=== PATIENT | female | born 1995 | race Caucasian/White ===

== ENCOUNTER 2016-06-14 07:19 | Inpatient (IN) | payer OTHER ==
[2016-06-14 08:08] VITALS: BMI 27.9
[2016-06-14] MEDS ORDERED: OXYTOCIN 10 UNIT/ML 1 ML VIAL IM PRN (08:26)
[2016-06-14] MEDS ORDERED: LIDOCAINE 1% 20 ML VIAL (10MG/ML) FOR IV START INTRADERMA PRN (08:26)
[2016-06-14] MEDS ORDERED: TERBUTALINE 1 MG/ML VIAL SQ PRN (08:26)
[2016-06-14] MEDS ORDERED: LIDOCAINE 1% (PF) 10 MG/ML (30 ML SDV) SQ PRN (08:26)
[2016-06-14] MEDS ORDERED: CARBOPROST TROMETHAMINE 250 MCG/ML 1 ML AMP IM PRN (08:26)
[2016-06-14] MEDS ORDERED: METHYLERGONOVINE 0.2 MG/ML 1 ML AMP IM PRN (08:26)
--- NOTE | 2016-06-14 08:26 | P.HPOB ---
History of Present Illness H&P Date: 06/14/16 Chief Complaint: Contractions This is a 21-year-old female 2 para 1 with an estimated date of confinement of 06/22/2016, estimated gestational age of 38-6/7 weeks, who presents to labor and delivery complaining of contractions since earlier this morning. They have become stronger and more regular. course has been with myself and then uncomplicated. She denies any rupture of membranes. labs: Random glucose-80 Hepatitis B surface antigen-negative Hemoglobin-13.2 Syphilis antibody-negative nonreactive Rubella-immune Blood type-A+ And a body screen-negative Obstetrical ultrasound-within normal limits one hour Glucola-135 Three-hour Glucola-within normal limits Group B streptococcus-negative Obstetrical history: . History of 1 vaginal delivery at term with no complications. Gynecologic history: No history of sexual transmitted diseases. Review of Systems Gastrointestinal: Reports abdominal pain Genitourinary: Reports pelvic pain, Reports Past Medical History Past Medical History: No Reported History History of Any Multi-Drug Resistant Organisms: None Reported, Other MDRO Past Surgical History: No Surgical Hx Reported Past Anesthesia/Blood Transfusion Reactions: No Reported Reaction Past Psychological History: Anxiety Smoking Status: Current every day smoker Past Alcohol Use History: None Reported Past Drug Use History: None Reported - Past Family History Mother Family Medical History: Thyroid Disorder Medications and Allergies Home Medications Medication Instructions Recorded Confirmed Type No Known Home Medications [No 06/14/16 06/14/16 History Known Home Medications] Allergies Allergy/AdvReac Type Severity Reaction Status Date / Time No Known Allergies Allergy Verified 01/07/16 23:45 Exam Osteopathic Statement: *. No significant issues noted on an osteopathic structural exam other than those noted in the History and Physical/Consult. - Vital Signs Vital signs: Vital Signs Temp Pulse Resp BP Pulse Ox 06/14/16 07:23 96.3 F L 83 17 126/84 99 Intake and Output 06/13/16 06/14/16 06/14/16 22:59 06:59 14:59 Other: Weight 67.132 kg Patient Weight 06/15/16 06:59 Weight 67.132 kg HEENT: Within normal limits Heart: Regular rate and rhythm Lungs: Clear to auscultation bilaterally Abdomen: Cervix: Initially in triage was 5 cm/90%/-2 station. Currently cervix is 7-1/2 cm/90%/-1 station. Artificial rupture members is carried out with clear fluid noted. heart tones: Reactive Contractions: Every 2 minutes Extremities: Negative Homans Assessment and Plan (1) 38 weeks gestation of Status: Acute (2) Spontaneous onset of labor Status: Acute Plan: Admit for active labor. Expectant management.
[2016-06-14] MEDS: LACTATED RINGERS 1,000 ML IV SCH ×2 (08:31→11:13)
[2016-06-14 08:47] LABS: Basophils % (A) 0 %; CH 30.4; Eosinophils # (A) 0.1 k/uL (0-0.7); Eosinophils % (A) 0 %; HDW 3.24; HGB 12.4 gm/dL (11.4-16.0); Luc # (Auto) 0.35; Luc % (Auto) 2; Lymphocytes # (A) 1.6 k/uL (1.0-4.8); Lymphocytes % (A) 10 %; MCH 29.4 pg (25.0-35.0); MCHC 32.8 g/dL (31.0-37.0); MCV 89.8 fL (80.0-100.0); Mean Platelet Volume 7.5; Monocytes # (A) 0.7 k/uL (0-1.0); Monocytes % (A) 4 %; Neutrophils # (A) 13.1 k/uL (1.3-7.7); Neutrophils % (A) 83 %; RBC 4.23 m/uL (3.80-5.40); RDW 13.6 % (11.5-15.5); WBC 15.8 k/uL (3.8-10.6); WBC (Perox) 17.36
[2016-06-14] MEDS ORDERED: BUTORPHANOL 1 MG/ML 1 ML VIAL IV PRN (09:53)
[2016-06-14] MEDS ORDERED: OXYTOCIN 30 UNITS/500 ML NS 30 UNIT in SALINE 1 500ML.BAG IV SCH ×2 (10:00→12:00)
--- NOTE | 2016-06-14 11:56 | P.PROBDLV ---
Vaginal Delivery Note - . Vaginal Delivery Note: The patient progressed to complete dilation after oxytocin augmentation of labor and artificial rupture membranes with clear fluid noted. She did receive 1 dose of Stadol while in labor. Once reaching complete, she began pushing. Infant's head came to a crown and then delivered across the perineum followed by the anterior shoulder. Nose and mouth were bulb suctioned. With one further push, the remainder the easily delivered and was placed on mother 's abdomen. Cord was clamped and cut and was taken to warmer for evaluation. A viable male infant was noted with scores of 8 at 1 minute and 9 at 5 minutes and weight of 7 lbs. 10 oz. No perineal lacerations are noted. Placenta did take approximately 15 minutes to detach and then easily delivered intact. Three-vessel cord is noted. Uterus contracted well after oxytocin was given and uterine massage was carried out. Estimated blood loss is approximately 100 mL's. Both mother and are in stable condition.
[2016-06-14] MEDS ORDERED: diphenhydrAMINE 25 MG CAP PO PRN (11:58)
[2016-06-14] MEDS ORDERED: WITCH HAZEL 1 EACH MED..PAD TOPICAL PRN (11:58)
[2016-06-14] MEDS ORDERED: diphenhydrAMINE 50 MG/ML 1 ML VIAL IVP PRN ×2 (11:58)
[2016-06-14] MEDS ORDERED: BENZOCAINE/MENTHOL SPRAY 1 GM/SPRAY AEROSOL TOPICAL PRN (11:58)
[2016-06-14] MEDS ORDERED: HYDROCORTISONE 2.5% RECTAL CREAM 30 GM TUBE RECTAL PRN (11:58)
[2016-06-14] MEDS ORDERED: LANOLIN CREAM 5 GM TUBE TOPICAL PRN (11:58)
[2016-06-14] MEDS ORDERED: ACETAMINOPHEN TAB 325 MG TAB PO PRN (11:58)
[2016-06-14] MEDS ORDERED: diphenhydrAMINE 50 MG CAP PO PRN (11:58)
[2016-06-14] MEDS ORDERED: Acetaminophen-Codeine 300-30mg TAB PO PRN ×2 (11:58)
[2016-06-14] MEDS ORDERED: ZOLPIDEM 5 MG TAB PO PRN (11:58)
[2016-06-14] MEDS ORDERED: IBUPROFEN 600 MG TAB PO PRN (11:58)
[2016-06-14] MEDS ORDERED: SIMETHICONE 80 MG CHEWABLE PO PRN (11:58)
[2016-06-14] MEDS: SENNOSIDES-DOCUSATE SODIUM 1 EACH TAB PO SCH (20:28)
[2016-06-15 07:49] VITALS: BP 108/77; PULSE 67; RESP 17; TEMP 98
[2016-06-15] MEDS: SENNOSIDES-DOCUSATE SODIUM 1 EACH TAB PO SCH (07:49)
[2016-06-15 09:10] LABS: Basophils % (A) 0 %; CH 30.2; CHCM 33.6; Eosinophils # (A) 0.1 k/uL (0-0.7); Eosinophils % (A) 1 %; HCT 34.3 % (34.0-46.0); HDW 3.25; HGB 11.1 gm/dL (11.4-16.0); Luc # (Auto) 0.48; Luc % (Auto) 3; Lymphocytes # (A) 3.1 k/uL (1.0-4.8); Lymphocytes % (A) 22 %; MCH 29.4 pg (25.0-35.0); MCHC 32.5 g/dL (31.0-37.0); MCV 90.4 fL (80.0-100.0); Mean Platelet Volume 7.3; Monocytes # (A) 0.6 k/uL (0-1.0); Monocytes % (A) 4 %; Neutrophils # (A) 10.1 k/uL (1.3-7.7); Neutrophils % (A) 70 %; RDW 13.7 % (11.5-15.5); WBC 14.4 k/uL (3.8-10.6); WBC (Perox) 14.56
--- NOTE | 2016-06-15 11:09 | P.DS ---
Providers Date of admission: 06/14/16 08:17 Expected date of discharge: 06/15/16 Attending physician: Damaris Quinones Primary care physician: Stated None - Discharge Diagnosis(es) (1) 38 weeks gestation of Current Visit: Yes Status: Acute (2) Spontaneous onset of labor Current Visit: No Status: Acute Hospital Course: This is a 21-year-old female 2 para 1 at 38-6/7 weeks who presented in active labor. She delivered vaginally a viable male infant with scores of 8 at 1 minute and 9 at 5 minutes and weight of 7 lbs. 10 oz. Her course is uncomplicated. She is breast and bottlefeeding. Lochia is decreasing. Pain is well-controlled with oral pain medications. Vital signs are stable. Abdomen is soft and nontender. Fundus is firm and nontender. Extremities show negative Homans. Impression is status post vaginal delivery day #1. Plan is to discharge home today. Routine instructions are given. She states she are he has ibuprofen at home. She will be given a prescription for Tylenol 3 and a breast pump. She is advised to follow up in the office in 6 weeks for a check. She is advised to call the office if she has any further questions or concerns prior to her appointment time. Procedures: Spontaneous vaginal delivery of a viable male infant on 06/14/2016 Patient Condition at Discharge: Stable Plan - Discharge Summary New Discharge Prescriptions: Acetaminophen-Codeine 300-30mg [Tylenol w/codeine #3] 1 each PO Q4HR PRN #30 tab PRN Reason: Mild Pain exceeding Tylenol Discharge Medication List Acetaminophen-Codeine 300-30mg [Tylenol w/codeine #3] 1 each PO Q4HR PRN #30 tab 06/15/16 [Rx] Ibuprofen [Motrin] 600 mg PO Q6HR PRN #0 tab 06/15/16 [Rx] Follow up Appointment(s)/Referral(s): Damaris Quinones DO [Doctor of Osteopathic Medicine] - 6 Weeks Activity/Diet/Wound Care/Special Instructions: Instructions 1. Do not begin any exercise program for 3 weeks. 2. Do not resume sexual relations for 3 weeks or longer if uncomfortable. 3. You may take tub baths or showers at any time. 4. You may use tampons if desired after 3 weeks. 5. Keep the area of episiotomy (stitches) clean and dry. 6. If you are not nursing, wear a good fitting, supportive bra during the day and limit fluid intake for at least 1 week to prevent breast engorgement. 7. Call the office, [phone], within the next week to make appointment for your 6 week checkup if it has not already been made. 8. Report any of the following occurrences to the doctor promptly: a. Heavy, excessive bleeding b. Chills, fever c. Burning or frequency of urination d. Pain or redness and breasts if nursing e. Increasing pain or swelling in episiotomy (stitches). In addition to the above instructions, the following additional should be followed: 1. No heavy lifting or straining (exercising) until after 6 week checkup. 2. Keep abdominal incision clean and dry: You may wear a dressing if more comfortable. 3. Make office appointment for 10 days after going home or as instructed by her doctor. Discharge Disposition: HOME SELF-CARE
== END 2016-06-15 12:53 | disposition home or self-care (01) | DRG 775 ==
LOC: FBPOP 07:19 → 4FBP 08:17
PROVIDERS: ADMIT Obstetrics & Gynecology; ATTEND Obstetrics & Gynecology
PROC: 10E0XZZ Delivery of Products of Conception, External Approach (ICD-10-PCS; principal; 2016-06-14)
PROC: 10907ZC Drainage of Amniotic Fluid, Therapeutic from Products of Conception, Via Natural or Artificial Opening (ICD-10-PCS; 2016-06-14)
DX: O99.334 Smoking (tobacco) complicating childbirth (principal); O99.344 Other mental disorders complicating childbirth; F41.9 Anxiety disorder, unspecified; Z37.0 Single live birth; F17.200 Nicotine dependence, unspecified, uncomplicated; Z3A.38 38 weeks gestation of pregnancy
CPT/HCPCS: 59025; 85025; 88307; 99213

== ENCOUNTER → 2020-07-23 | Outpatient (CLI) | payer OTHER ==
--- NOTE | 2020-07-23 17:30 | US ---
EXAMINATION TYPE: Ultrasound OB <= 14 week fetus DATE OF EXAM: 07/23/2020 2:33 PM COMPARISON: NONE CLINICAL HISTORY: 25-year-old female Z36 CONFIRM DATES. No complaints, EXAM PERFORMED: OBTA FINDINGS: EXAM MEASUREMENTS: GESTATIONAL AGE / DATING Physician Established: Not yet established Dates by LMP: (9 weeks/6 days) EDC: 02/19/2021 Dates by First Scan: No previous this is first scan Dates by Current Scan for: (9 weeks/0 days) EDC: 02/25/2021 MATERNAL ANATOMY Uterus: 13.7 x 5.9 x 5.3cm Right Ovary: 2.5 x 1.9 x 1.2cm Left Ovary: 2.2 x 1.6 x 1.5cm Post CDS / Adnexa: wnl Presence of free fluid: no Presence of corpus luteal cyst: yes, left ovary 1.5 x 1.3 x 1.4cm Presence of subchorionic bleed: no GESTATION / SURVEY CRL: 2.3cm ( 9 weeks/0 days) MSD: wnl Yolk Sac (normal less than 6mm): 0.3cm Heart Rate: 160 bpm Rhythm: Normal IUP: Viable IUP Date of LMP: 05/15/2020 IMPRESSION: 1. Single live intrauterine with estimated gestational age of 9 weeks 6 days by LMP. Curren t ultrasound biometry by CRL is smaller at 9 weeks 0 days. Clinically correlate. 2. Complete survey recommended at 18-20 weeks.
== END ==
LOC: RADUSWWP 14:18
PROVIDERS: ATTEND Obstetrics & Gynecology
DX: Z36.87 Encounter for antenatal screening for uncertain dates (principal); Z3A.09 9 weeks gestation of pregnancy
CPT/HCPCS: 76801

== ENCOUNTER 2021-02-07 06:00 | Inpatient (IN) | payer OTHER ==
--- NOTE | 2021-02-06 13:23 | P.HPOB ---
History of Present Illness H&P Date: 02/06/21 Chief Complaint: Induction of labor, IUGR This is a 26 y.o. female, 3, para 2, with an estimated date of confinement of 02/19/2021, estimated gestational age of 38-2/7 weeks, who presents for induction of labor due to IUGR. Her last US at [facility] showed an estimated weight of 5#5oz at 8th percentile. [facility] has recommended delivery between 38-39 weeks for this reason. Her WENDY was 11.2 cm and biophysical profile and dopplers have been normal. course has otherwise been uncomplicated. labs: Hepatitis B surface antigen-neg RPR- reactive, Treponema antibodies-NR Rubella-immune Blood type-A+ Antibody screen-neg HIV-NR Hemoglobin-13.8 Random glucose-86 1 hr. GTT-127 GBS-positive OB Hx: . HIstory of 2 vaginal deliveries at term. 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 Social Hx: Single, works at [email or web address] Review of Systems Constitutional: Denies chills, Denies fever Eyes: denies blurred vision, denies pain Ears, nose, mouth and throat: Denies headache, Denies sore throat Cardiovascular: Denies chest pain, Denies shortness of breath Gastrointestinal: Reports abdominal pain (irregular ctxs) Genitourinary: Reports pelvic pain, Denies dysuria, Denies hematuria Musculoskeletal: Reports low back pain Integumentary: Denies pruritus, Denies rash Neurological: Denies numbness, Denies weakness Psychiatric: Denies anxiety, Denies depression Past Medical History Past Medical History: No Reported History History of Any Multi-Drug Resistant Organisms: None Reported, Other MDRO Past Surgical History: No Surgical Hx Reported Past Anesthesia/Blood Transfusion Reactions: No Reported Reaction Past Psychological History: Anxiety Smoking Status: Light tobacco smoker Past Alcohol Use History: None Reported Past Drug Use History: None Reported - Past Family History Mother Family Medical History: Hypertension, Thyroid Disorder Medications and Allergies Home Medications Medication Instructions Recorded Confirmed Type Pnv,Calcium 72/Iron/Folic Acid 1 each PO 02/06/21 History [ Plus Tablet] Allergies Allergy/AdvReac Type Severity Reaction Status Date / Time No Known Allergies Allergy Verified 01/07/16 23:45 Exam Osteopathic Statement: *. No significant issues noted on an osteopathic structural exam other than those noted in the History and Physical/Consult. HEENT: within normal limits Heart: regular rate and rhythm Lungs: clear to auscultation bilaterally Abdomen: , non-tender heart tones: 140's by doppler Cervix: 1 cm/60%/-3 Extremities: neg. Judith's Assessment and Plan (1) IUGR (intrauterine growth restriction) Status: Acute Code(s): [id number] - SNOMED Code(s): 70695823 (2) 38 weeks gestation of Status: Acute Code(s): Z3A.38 - 38 WEEKS GESTATION OF SNOMED Code(s): 73099767 Plan: Oxytocin induction of labor. Expectant management. Antibiotic prophylaxis for GBS. Epidural anesthesia if desired.
[2021-02-07] MEDS ORDERED: OXYTOCIN 10 UNIT/ML 1 ML VIAL IM PRN (06:08)
[2021-02-07] MEDS ORDERED: METHYLERGONOVINE 0.2 MG/ML 1 ML AMP IM PRN (06:08)
[2021-02-07] MEDS ORDERED: LIDOCAINE 0.5% (PF) 5 MG/ML (50 ML SDV) SQ PRN (06:08)
[2021-02-07] MEDS ORDERED: LIDOCAINE 1% (10MG/ML) FOR IV START INTRADERMA PRN (06:08)
[2021-02-07] MEDS ORDERED: CARBOPROST TROMETHAMINE 250 MCG/ML 1 ML AMP IM PRN (06:08)
[2021-02-07] MEDS ORDERED: TERBUTALINE 1 MG/ML VIAL SQ PRN (06:08)
[2021-02-07] MEDS ORDERED: OXYTOCIN 30 UNITS/500 ML NS 30 UNIT in SALINE 1 500ML.BAG IV SCH ×2 (06:08→19:06)
[2021-02-07] MEDS: LACTATED RINGERS 1,000 ML IV SCH ×2 (06:11→14:49)
[2021-02-07] MEDS ORDERED: AMPICILLIN 2,000 MG in SODIUM CHLORIDE 0.9% 100 ML IVPB ONE (06:15)
[2021-02-07 06:32] LABS: Basophils % (A) 0 %; Eosinophils # (A) 0.1 k/uL (0-0.7); Eosinophils % (A) 1 %; HCT 34.8 % (34.0-46.0); HGB 12.3 gm/dL (11.4-16.0); Lymphocytes # (A) 2.1 k/uL (1.0-4.8); Lymphocytes % (A) 18 %; MCH 32.7 pg (25.0-35.0); MCHC 35.4 g/dL (31.0-37.0); MCV 92.4 fL (80.0-100.0); Mean Platelet Volume 7.9; Monocytes # (A) 0.5 k/uL (0-1.0); Monocytes % (A) 4 %; Neutrophils # (A) 8.8 k/uL (1.3-7.7); Neutrophils % (A) 74 %; Platelet Count 287 k/uL (150-450); RBC 3.76 m/uL (3.80-5.40); RDW 13.5 % (11.5-15.5); WBC 11.9 k/uL (3.8-10.6)
[2021-02-07] MEDS: AMPICILLIN 1,000 MG in SODIUM CHLORIDE 0.9% 50 ML IVPB SCH ×3 (10:49→18:28)
[2021-02-07] MEDS ORDERED: ONDANSETRON 4 MG/2 ML VIAL IVP STA (14:14)
[2021-02-07] MEDS ORDERED: BUTORPHANOL 1 MG/ML 1 ML VIAL IV ONE (15:55)
[2021-02-07] MEDS ORDERED: BUTORPHANOL 1 MG/ML 1 ML VIAL IV STA (18:10)
--- NOTE | 2021-02-07 19:01 | P.PROBDLV ---
Vaginal Delivery Note - . Vaginal Delivery Note: Patient progressed to complete dilation after oxytocin induction of labor and artificial rupture of membranes with clear fluid noted. She did receive 2 doses of Stadol while in labor. She also received ampicillin for group B streptococcus prophylaxis. Once reaching 8-1/2-9 cm, she had a strong urge to push. She gave one push and immediately became complete and then in the same push delivered the infant's head. With one further push, the remainder of the easily delivered onto the bed in a controlled delivery. There was a cord around 1 shoulder and around the body but not around the neck. Nose and mouth were bulb suctioned. was taken to warmer for evaluation. A viable male infant was noted with scores of 8 at 1 minute and 9 at 5 minutes and weight of 5 pounds 15.6 ounces. Placenta delivered shortly thereafter, intact, with a three-vessel cord. Uterus contracted well after oxytocin was given and uterine massage was carried out. Inspection of the perineum revealed no perineal lacerations. Estimated blood loss is approximately 150 mL's. Both mother and are in stable condition.
[2021-02-07] MEDS ORDERED: diphenhydrAMINE 50 MG/ML 1 ML VIAL IVP PRN ×2 (19:06)
[2021-02-07] MEDS ORDERED: IBUPROFEN 600 MG TAB PO PRN (19:06)
[2021-02-07] MEDS ORDERED: diphenhydrAMINE 25 MG CAP PO PRN (19:06)
[2021-02-07] MEDS ORDERED: ZOLPIDEM 5 MG TAB PO PRN (19:06)
[2021-02-07] MEDS ORDERED: ACETAMINOPHEN TAB 325 MG TAB PO PRN (19:06)
[2021-02-07] MEDS ORDERED: LANOLIN CREAM 5 GM TUBE TOPICAL PRN (19:06)
[2021-02-07] MEDS ORDERED: SIMETHICONE 80 MG CHEWABLE PO PRN (19:06)
[2021-02-07] MEDS ORDERED: diphenhydrAMINE 50 MG CAP PO PRN (19:06)
[2021-02-07] MEDS ORDERED: BENZOCAINE/MENTHOL SPRAY 1 GM/SPRAY AEROSOL TOPICAL PRN (19:06)
[2021-02-07] MEDS ORDERED: HYDROCORTISONE 2.5% RECTAL CREAM 30 GM TUBE RECTAL PRN (19:06)
[2021-02-07] MEDS ORDERED: SENNOSIDES-DOCUSATE SODIUM 1 EACH TAB PO SCH (20:00)
[2021-02-08 07:02] LABS: Basophils % (A) 0 %; Eosinophils % (A) 0 %; HCT 30.2 % (34.0-46.0); HGB 10.9 gm/dL (11.4-16.0); Lymphocytes # (A) 1.9 k/uL (1.0-4.8); Lymphocytes % (A) 13 %; MCH 33.3 pg (25.0-35.0); MCV 92.5 fL (80.0-100.0); Mean Platelet Volume 8.3; Monocytes # (A) 0.6 k/uL (0-1.0); Monocytes % (A) 4 %; Neutrophils # (A) 11.7 k/uL (1.3-7.7); Neutrophils % (A) 80 %; Platelet Count 254 k/uL (150-450); RBC 3.26 m/uL (3.80-5.40); RDW 13.5 % (11.5-15.5); WBC 14.6 k/uL (3.8-10.6)
--- NOTE | 2021-02-08 08:56 | P.DS ---
Providers Date of admission: 02/07/21 06:00 Expected date of discharge: 02/08/21 Attending physician: Damaris Quinones Primary care physician: Stated None - Discharge Diagnosis(es) (1) IUGR (intrauterine growth restriction) Current Visit: No Status: Acute (2) 38 weeks gestation of Current Visit: No Status: Acute Hospital Course: This is a 26-year-old female 3 para 2 at 38-2/7 weeks who presented for induction of labor secondary to intrauterine growth restriction. She underwent oxytocin induction of labor and delivered vaginally a viable male infant with scores of 8 at 1 minute and 9 at 5 minutes and weight of 5 pounds 15.6 ounces. Her course has been uncomplicated. She is bottle feeding. Lochia is decreasing. Pain is well-controlled. Vital signs are stable. Abdomen is soft with fundus firm and nontender. Extremities show negative Homans. Impression is status post vaginal delivery day #1. Plan is to discharge home later today. Routine instructions are given. She will be given a prescription for ibuprofen. She is advised to call the office if she has any further questions or concerns prior to her appointment time. Procedures: Oxytocin induction of labor Spontaneous vaginal delivery of a viable male on 02/07/2021 Patient Condition at Discharge: Stable Plan - Discharge Summary Follow up Appointment(s)/Referral(s): Damaris Quinones DO [Doctor of Osteopathic Medicine] - 03/20/21 2:00 pm Activity/Diet/Wound Care/Special Instructions: Instructions 1. Do not begin any exercise program for 3 weeks. 2. Do not resume sexual relations for 3 weeks or longer if uncomfortable. 3. You may take tub baths or showers at any time. 4. You may use tampons if desired after 3 weeks. 5. Keep the area of episiotomy (stitches) clean and dry. 6. If you are not nursing, wear a good fitting, supportive bra during the day and limit fluid intake for at least 1 week to prevent breast engorgement. 7. Call the office, [phone], within the next week to make appointment for your 6 week checkup if it has not already been made. 8. Report any of the following occurrences to the doctor promptly: a. Heavy, excessive bleeding b. Chills, fever c. Burning or frequency of urination d. Pain or redness and breasts if nursing e. Increasing pain or swelling in episiotomy (stitches). In addition to the above instructions, the following additional should be followed: 1. No heavy lifting or straining (exercising) until after 6 week checkup. 2. Keep abdominal incision clean and dry: You may wear a dressing if more comfortable. 3. Make office appointment for 10 days after going home or as instructed by her doctor. Discharge Disposition: HOME SELF-CARE
[2021-02-08 12:47] VITALS: RESP 16
[2021-02-08 16:37] VITALS: BP 125/82; PULSE 90; TEMP 98.1
== END 2021-02-08 21:25 | disposition home or self-care (01) | DRG 807 ==
LOC: 4FBP 06:00
PROVIDERS: ADMIT Obstetrics & Gynecology; ATTEND Obstetrics & Gynecology
PROC: 10E0XZZ Delivery of Products of Conception, External Approach (ICD-10-PCS; principal; 2021-02-07)
PROC: 10907ZC Drainage of Amniotic Fluid, Therapeutic from Products of Conception, Via Natural or Artificial Opening (ICD-10-PCS; 2021-02-07)
PROC: 3E033VJ Introduction of Other Hormone into Peripheral Vein, Percutaneous Approach (ICD-10-PCS; 2021-02-07)
DX: O36.5930 Maternal care for other known or suspected poor fetal growth, third trimester, not applicable or unspecified (principal); Z37.0 Single live birth; Z3A.38 38 weeks gestation of pregnancy; O69.82X0 Labor and delivery complicated by other cord entanglement, without compression, not applicable or unspecified; O99.334 Smoking (tobacco) complicating childbirth; F17.200 Nicotine dependence, unspecified, uncomplicated; F41.9 Anxiety disorder, unspecified; O99.344 Other mental disorders complicating childbirth; Z82.49 Family history of ischemic heart disease and other diseases of the circulatory system
CPT/HCPCS: 85025; 86850; 86900; 86901; 88307

== ENCOUNTER 2021-06-01 15:34 | Emergency (ER) | payer OTHER ==
[2021-06-01 16:21] VITALS: TEMP 98.9
[2021-06-01] MEDS ORDERED: MORPHINE SULFATE 2 MG/ML SYRINGE IVP STA (18:21)
[2021-06-01] MEDS ORDERED: SODIUM CHLORIDE 0.9% 1,000 ML IV STA (18:21)
[2021-06-01] MEDS ORDERED: diphenhydrAMINE 50 MG/ML 1 ML VIAL IVP STA (18:21)
[2021-06-01] MEDS ORDERED: ONDANSETRON 4 MG/2 ML VIAL IVP STA (18:21)
[2021-06-01] MEDS ORDERED: KETOROLAC 15 MG/ML 1 ML VIAL IVP STA (18:21)
[2021-06-01] MEDS ORDERED: FAMOTIDINE 20 MG/2 ML VIAL IV STA (18:22)
[2021-06-01 18:53] LABS: Basophils % (A) 0 %; Eosinophils # (A) 0.1 k/uL (0-0.7); Eosinophils % (A) 0 %; HCT 42.2 % (34.0-46.0); HGB 14.2 gm/dL (11.4-16.0); Lymphocytes # (A) 1.1 k/uL (1.0-4.8); Lymphocytes % (A) 6 %; MCH 30.9 pg (25.0-35.0); MCHC 33.6 g/dL (31.0-37.0); MCV 91.9 fL (80.0-100.0); Mean Platelet Volume 6.9; Monocytes # (A) 0.7 k/uL (0-1.0); Monocytes % (A) 4 %; Neutrophils # (A) 16.7 k/uL (1.3-7.7); Neutrophils % (A) 89 %; Platelet Count 352 k/uL (150-450); RBC 4.59 m/uL (3.80-5.40); RDW 12.4 % (11.5-15.5); WBC 18.7 k/uL (3.8-10.6)
[2021-06-01 19:07] LABS: HCG,Qualitative Serum Not Detected
[2021-06-01 19:10] LABS: ALT 16 U/L (4-34); AST 17 U/L (14-36); African American GFR (CKD) >90 (>60 ml/min/1.73 sqM); Albumin 4.6 g/dL (3.5-5.0); Alkaline Phosphatase 80 U/L (38-126); Amylase 47 U/L (30-110); Anion Gap 9 mmol/L; Blood Urea Nitrogen 15 mg/dL (7-17); Calcium 10.1 mg/dL (8.4-10.2); Carbon Dioxide 24 mmol/L (22-30); Chloride 105 mmol/L (98-107); Glucose 115 mg/dL (74-99); Lipase 67 U/L (23-300); Non-African American GFR(CKD) >90 (>60 ml/min/1.73 sqM); Potassium 4.2 mmol/L (3.5-5.1); Sodium 138 mmol/L (137-145); Total Bilirubin 0.6 mg/dL (0.2-1.3); Total Protein 7.5 g/dL (6.3-8.2)
--- NOTE | 2021-06-01 19:26 | XR ---
EXAMINATION TYPE: XR abdomen 1V DATE OF EXAM: 06/01/2021 COMPARISON: 10/10/2010 HISTORY: Abdominal pain TECHNIQUE: FINDINGS: There is 2.2 cm rounded area of increased density right upper quadrant. This could be large calcified gallstone or unusual renal calculus. There is no evidence of bowel obstruction. There is n o free air. There is no evidence of a mass. IMPRESSION: Possible right upper quadrant calcification as above. Nonacute abdomen.
[2021-06-01 20:14] LABS: Appearance,Urine Cloudy (Clear); Bacteria,Urine Occasional /hpf; Bilirubin,Urine Negative (Negative); Blood,Urine Negative (Negative); Color,Urine Yellow; Glucose,Urine (UA) Negative (Negative); Ketones,Urine 2+ (Negative); Leukocyte Esterase,Urine Trace (Negative); Mucus,Urine Moderate /hpf; Nitrite,Urine Positive (Negative); Protein,Urine Trace (Negative); RBC,Urine 2 /hpf (0-5); Specific Gravity,Urine 1.025 (1.001-1.035); Squamous Epithelial Cell,Urine 8 /hpf (0-4); Urobilinogen,Urine <2.0 mg/dL (<2.0); WBC,Urine 10 /hpf (0-5)
--- NOTE | 2021-06-01 20:19 | US ---
EXAMINATION TYPE: US gallbladder DATE OF EXAM: 06/01/2021 COMPARISON: NONE CLINICAL HISTORY: RUQ pain, history of gallstones. RUQ pain N&V EXAM MEASUREMENTS: Liver Length: 15.0 cm Gallbladder Wall: 0.3 cm CBD: 0.8 cm Right Kidney: 10.2 x 4.6 x 4.1 cm Pancreas: wnl, tail obscured by overlying bowel gas Liver: wnl Gallbladder: Distended with gallstones, some non-mobile within GB neck, wall thickness upper limits of normal Evidence for sonographic Gracia's sign: Yes CBD: Dilated Right Kidney: wnl, lower pole gassed out IMPRESSION: Multiple gallstones. No dilated ducts. No free fluid.
[2021-06-01] MEDS ORDERED: cefTRIAXone IN SWFI 1,000 MG/10 ML SYRINGE IVP STA (20:41)
--- NOTE | 2021-06-01 21:08 | ED ---
General Adult HPI - General Chief complaint: Abdominal Pain Stated complaint: Abd.and Back Pain Time Seen by Provider: 06/01/21 18:09 Source: patient, RN notes reviewed, old records reviewed Mode of arrival: ambulatory Limitations: no limitations - History of Present Illness Initial comments: Patient is a 26-year-old female who is 4 months who presents emergency Department complaining of a one-day history of right upper quadrant abdominal pain associated with nausea and vomiting. She states she does have a history gallstones, however never required surgery. She also states she is having some mild burning when urinating. She is concerned she may have a UTI, and believes her gallstones are acting up. Endorses a few episodes of nonbi lious emesis. Denies any was bowel movements or constipation. Denies any chest pain, shortness of breath. His no other acute complaints at this time. Presents over concern for nausea, vomiting as well as the patient. - Related Data Previous Rx's Medication Instructions Recorded Cephalexin [Keflex] 500 mg PO Q12HR 5 Days #10 cap 06/01/21 Ibuprofen [Motrin] 800 mg PO Q8H 7 Days #21 tab 06/01/21 Ondansetron Odt [Zofran Odt] 4 mg PO Q8HR PRN 3 Days #9 tab 06/01/21 Allergies Allergy/AdvReac Type Severity Reaction Status Date / Time No Known Allergies Allergy Verified 06/01/21 21:08 Review of Systems ROS Statement: Those systems with pertinent positive or pertinent negative responses have been documented in the HPI. Review of Systems: CONST: Denies fever EYES: Denies blurry vision ENT: Denies nasal congestion C/V: Denies Chest pain RESP: Denies shortness of breath GI: Endorses abdominal pain : Endorses dysuria SKIN: Denies rash. MSK: Denies joint pain. NEURO: Denies headache ROS Other: All systems not noted in ROS Statement are negative. Past Medical History Past Medical History: No Reported History Additional Past Medical History / Comment(s): Exercise induced asthma History of Any Multi-Drug Resistant Organisms: None Reported Past Surgical History: No Surgical Hx Reported Past Anesthesia/Blood Transfusion Reactions: No Reported Reaction Past Psychological History: Anxiety Smoking Status: Current every day smoker Past Alcohol Use History: Occasional Past Drug Use History: None Reported - Past Family History Mother Family Medical History: Thyroid Disorder General Exam - General Exam Comments Initial Comments: General: Is in mild distress secondary to abdominal pain. HEAD: Normal with no signs of head trauma. EYES: PERRLA, EOMI, conjunctiva normal, no discharge. ENT: Hearing grossly intact, normal oropharynx. RESPIRATORY: Clear breath sounds bilaterally. No wheezes, rales, or rhonchi. C/V: Regular rate and rhythm. S1 and S2 auscultated, no edema, peripheral pulses 2+ and intact throughout ABD: Abdomen is soft, nondistended. Patient is tender to palpation in the right upper quadrant. Gracia sign is positive. There is no guarding. There is no rebound tenderness. No peritoneal signs. EXT: Normal range of motion, no obvious deformity SKIN: No rashes or lesions observed on exposed skin. NEURO: Alert and oriented 4. Limitations: no limitations Course Vital Signs 06/01/21 06/01/21 16:19 21:20 Temperature 98.9 F Pulse Rate 78 81 Respiratory 20 18 Rate Blood Pressure 129/84 134/78 O2 Sat by Pulse 100 99 Oximetry Medical Decision Making - Medical Decision Making Based on the patient's presentation and physical exam, I'm concerned for acute intra-abdominal process for current symptoms, including UTI or bladder pathology. We will obtain abdominal laboratory studies as well as gallbladder. she will be symptomatically treated with analgesic medications, iv fluid bolus, iv zofran and benadryl. she was in agreement with this plan. laboratory studies were remarkable for a leukocytosis of 18.7 which is likely multifactorial from her nausea, vomiting as well as her acute uti which is seen on urinalysis with 2+ ketones, positive nitrites, as well as leukocyte esterase and bacteria and wbcs present. remainder of her labs are unremarkable. : her ultrasound revealed gallstones without dilated ducts or signs of cholecystitis. abdominal x-ray showed calcified gallstones present. i discussed the results of her imaging and laboratory studies with the patient. she is feeling improved at this time. she is tolerating oral intake at this time. I believe she is likely expressing biliary colic as well as an acute urinary tract infection. she would like to go home with outpatient follow-up with surgery. she'll be provided with a one-time dose of rocephin here in the emergency department for uti as well as outpatient antibiotics. she was in agreement with this plan. I will provide the patient with a prescription for ODT Zofran, Keflex 500 mg twice a day for 5 days, and 800 milligram ibuprofen. I instructed the patient to follow up with their PCP in the next 3 days. I provided contact information for follow up with general surgery. I explained that the patient should return to the emergency department if they experience any worsening symptoms. Strict return precautions were discussed with the patient. The patient expressed understanding of these instructions. I answered all questions that the patient had. The patient was discharged home in fair condition with their prescriptions and follow up information. - Lab Data Result diagrams: 06/01/21 18:46 06/01/21 18:46 Lab Results 06/01/21 06/01/21 06/01/21 Range/Units 18:46 18:46 19:29 WBC 18.7 H (3.8-10.6) k/uL RBC 4.59 (3.80-5.40) m/uL Hgb 14.2 (11.4-16.0) gm/dL Hct 42.2 (34.0-46.0) % MCV 91.9 (80.0-100.0) fL MCH 30.9 (25.0-35.0) pg MCHC 33.6 (31.0-37.0) g/dL RDW 12.4 (11.5-15.5) % Plt Count 352 (150-450) k/uL MPV 6.9 Neutrophils % 89 % Lymphocytes % 6 % Monocytes % 4 % Eosinophils % 0 % Basophils % 0 % Neutrophils # 16.7 H (1.3-7.7) k/uL Lymphocytes # 1.1 (1.0-4.8) k/uL Monocytes # 0.7 (0-1.0) k/uL Eosinophils # 0.1 (0-0.7) k/uL Basophils # 0.0 (0-0.2) k/uL Sodium 138 (137-145) mmol/L Potassium 4.2 (3.5-5.1) mmol/L Chloride 105 (98-107) mmol/L Carbon Dioxide 24 (22-30) mmol/L Anion Gap 9 mmol/L BUN 15 (7-17) mg/dL Creatinine 0.42 L (0.52-1.04) mg/dL Est GFR (CKD-EPI)AfAm >90 (>60 ml/min/1.73 sqM) Est GFR (CKD-EPI)NonAf >90 (>60 ml/min/1.73 sqM) Glucose 115 H (74-99) mg/dL Calcium 10.1 (8.4-10.2) mg/dL Total Bilirubin 0.6 (0.2-1.3) mg/dL AST 17 (14-36) U/L ALT 16 (4-34) U/L Alkaline Phosphatase 80 (38-126) U/L Total Protein 7.5 (6.3-8.2) g/dL Albumin 4.6 (3.5-5.0) g/dL Amylase 47 (30-110) U/L Lipase 67 (23-300) U/L HCG, Qual Not Detected Urine Color Yellow Urine Appearance Cloudy H (Clear) Urine pH 6.0 (5.0-8.0) Ur Specific [place] 1.025 (1.001-1.035) Urine Protein Trace H (Negative) Urine Glucose (UA) Negative (Negative) Urine Ketones 2+ H (Negative) Urine Blood Negative (Negative) Urine Nitrite Positive H (Negative) Urine Bilirubin Negative (Negative) Urine Urobilinogen <2.0 (<2.0) mg/dL Ur Leukocyte Esterase Trace H (Negative) Urine RBC 2 (0-5) /hpf Urine WBC 10 H (0-5) /hpf Ur Squamous Epith Cells 8 H (0-4) /hpf Urine Bacteria Occasional H (None) /hpf Urine Mucus Moderate H (None) /hpf Disposition Clinical Impression: Biliary colic, UTI (urinary tract infection), Nausea and vomiting Disposition: HOME SELF-CARE Condition: Fair Instructions (If sedation given, give patient instructions): Biliary Colic (ED), Urinary Tract Infection in Women (ED) Prescriptions: Cephalexin [Keflex] 500 mg PO Q12HR 5 Days #10 cap Ibuprofen [Motrin] 800 mg PO Q8H 7 Days #21 tab Ondansetron Odt [Zofran Odt] 4 mg PO Q8HR PRN 3 Days #9 tab PRN Reason: Nausea Is patient prescribed a controlled substance at d/c from ED?: No Referrals: None,Stated [Primary Care Provider] - 1-2 days Israel Marrero MD [Medical Doctor] - 1-2 days
[2021-06-01 21:22] VITALS: BP 134/78; PULSE 81; RESP 18
== END 2021-06-01 21:22 | disposition home or self-care (01) ==
LOC: EC 15:34
DX: N39.0 Urinary tract infection, site not specified (principal); K80.50 Calculus of bile duct without cholangitis or cholecystitis without obstruction; R11.2 Nausea with vomiting, unspecified; F41.9 Anxiety disorder, unspecified; F17.200 Nicotine dependence, unspecified, uncomplicated
CPT/HCPCS: 99284; 96374; 96375 ×5; 96361; 36415; 80053; 82150; 83690; 85025; 81001; 84703; 74018; 76705; J1200; J2405; J0696; J2270; J1885

== ENCOUNTER → 2022-01-21 | Outpatient (CLI) | payer OTHER ==
--- NOTE | 2022-01-21 13:34 | US ---
EXAMINATION TYPE: Transabdominal DATE OF EXAM: 01/21/2022 12:46 PM COMPARISON: NONE CLINICAL HISTORY: Z36.89 ENCOUNTER FOR OTHER SPECIFIED SCR. Confirm dates EXAM PERFORMED: Transabdominal (TA) EXAM MEASUREMENTS: GESTATIONAL AGE / DATING Physician Established: (13 weeks/2 days) EDC: 07/27/2022 Dates by LMP: LMP unknown Dates by First Scan: No previous this is first scan Dates by Current Scan for: (13 weeks/4 days) EDC: 07/25/2022 MATERNAL ANATOMY Uterus: 15.8 x 6.1 x 9.3cm Right Ovary: 2.3 x 1.4 x 1.8cm Left Ovary: 2.6 x 2.1 x 3.3cm Post CDS / Adnexa: wnl Presence of free fluid: no Presence of corpus luteal cyst: left ovary - 1.7 x 1.7 x 2.0cm Presence of subchorionic bleed: no GESTATION / SURVEY CRL: 7.5cm (13 weeks/4 days) Yolk Sac (normal less than 6mm): not seen Heart Rate: 152 bpm Rhythm: Normal IUP: Viable IUP IMPRESSION: Single viable intrauterine with ultrasound age of 13 weeks 4 days by ultrasound.
== END | disposition home or self-care (01) ==
LOC: RADUSWWP 12:18
PROVIDERS: ATTEND Obstetrics & Gynecology
DX: Z36.89 Encounter for other specified antenatal screening (principal); Z3A.13 13 weeks gestation of pregnancy
CPT/HCPCS: 76801

== ENCOUNTER 2022-10-22 06:29 | Day surgery (SDC) | payer OTHER ==
--- NOTE | 2022-10-21 19:29 | P.HPOB ---
History of Present Illness H&P Date: 10/21/22 Chief Complaint: Family planning This is a 27 y.o. female, 4, para 4, who presents for laparoscopic bilateral tubal ligation via fulgaration for family planning. She recently delivered her last child and wishes permanent sterilization. OB Hx: . History of 4 vaginal deliveries. [employer] Hx: History of chlamydia in the past. Social Hx: Single. Works at [employer] Systems Constitutional: Denies chills, Denies fever Eyes: denies blurred vision, denies pain Ears, nose, mouth and throat: Denies headache, Denies sore throat Cardiovascular: Denies chest pain, Denies shortness of breath Respiratory: Denies cough Gastrointestinal: Denies abdominal pain, Denies diarrhea, Denies nausea, Denies vomiting Genitourinary: Denies dysuria, Denies hematuria Musculoskeletal: Denies myalgias Integumentary: Denies pruritus, Denies rash Neurological: Denies numbness, Denies weakness Psychiatric: Denies anxiety, Denies depression Past Medical History Past Medical History: Asthma, Renal Disease Additional Past Medical History / Comment(s): Exercise induced asthma, hx uti due to kideny reflux. ? rt wrist carpal tunnel History of Any Multi-Drug Resistant Organisms: MRSA Date of last positivie culture/infection: unk when pt was 12yrs old MDRO Source:: gum Past Surgical History: No Surgical Hx Reported Past Anesthesia/Blood Transfusion Reactions: No Reported Reaction Past Psychological History: No Psychological Hx Reported Smoking Status: Current every day smoker Past Alcohol Use History: None Reported Past Drug Use History: None Reported - Past Family History Mother Family Medical History: Thyroid Disorder Sister(s) Additional Family Medical History / Comment(s): gall bladder out Medications and Allergies Home Medications Medication Instructions Recorded Confirmed Type No Known Home Medications 10/16/22 10/22/22 History Allergies Allergy/AdvReac Type Severity Reaction Status Date / Time No Known Allergies Allergy Verified 10/22/22 06:40 Exam Osteopathic Statement: *. No significant issues noted on an osteopathic structural exam other than those noted in the History and Physical/Consult. HEENT: within normal limits Heart: regular rate and rhythm Lungs: clear to auscultation bilaterally Abdomen: soft, non-tender Pelvic: uterus small, anteverted, non-tender, no adnexal masses or tenderness Extremities: neg. Judith's Assessment and Plan (1) Family planning Current Visit: No Status: Acute Code(s): Z30.09 - ENCOUNTER FOR OTH GENERAL CNSL AND ADVICE ON CONTRACEPTION SNOMED Code(s): 092052071 Plan: Proceed with laparoscopic bilateral tubal ligation via fulgaration. I have discussed the risks, benefits, and alternative therapies for the above- mentioned procedure and for both sedation/anesthesia as well as necessary blood products administration, if indicated, as they pertain to this patient. The patient has indicated her understanding and acceptance of the risks and procedures discussed.
[~2022-10-22 06:29] MED LIST: DEXAMETHASONE SOD PHOSPHATE 4 MG/ML 1 ML VIAL IV ONE; LACTATED RINGERS 1,000 ML IV SCH; LIDOCAINE 1% (10MG/ML) FOR IV START INTRADERMA PRN; ONDANSETRON 4 MG/2 ML VIAL IVP ONE; Pre Op ABX Message 1 EACH MISC MISCELLANE ONE; SCOPOLAMINE 1 MG/72 HR PATCH TRANSDERM ONE; droPERidol 5 MG/2 ML VIAL IVP ONE
[2022-10-22 06:50] VITALS: TEMP 97.4
[2022-10-22] MEDS ORDERED: HYDROmorphone 0.5 MG/0.5 ML SYRINGE IVP PRN (07:00)
[2022-10-22] MEDS ORDERED: NEOSTIGMINE 1 MG/ML 10 ML VIAL ONE (07:24)
[2022-10-22] MEDS ORDERED: GLYCOPYRROLATE 0.2 MG/ML 2 ML VIAL ONE (07:24)
[2022-10-22] MEDS ORDERED: SUCCINYLCHOLINE CHLORIDE 200 MG/10 ML VIAL IV ONE (07:24)
[2022-10-22] MEDS ORDERED: MIDAZOLAM 2 MG/2 ML VIAL ONE (07:24)
[2022-10-22] MEDS ORDERED: PROPOFOL 10 MG/ML 20 ML VIAL IV ONE (07:24)
[2022-10-22] MEDS ORDERED: KETOROLAC 15 MG/ML 1 ML VIAL ONE (07:24)
[2022-10-22] MEDS ORDERED: LIDOCAINE 2% INJ 20 MG/ML (2 ML VIAL) ONE (07:24)
[2022-10-22] MEDS ORDERED: fentaNYL (PF) 50 MCG/ML 2 ML AMP ONE (07:24)
[2022-10-22] MEDS ORDERED: ROCURONIUM 10 MG/ML (5 ML VIAL) IV ONE (07:24)
[2022-10-22] MEDS ORDERED: BUPIVACAINE (PF) 0.25% 30 ML VIAL SQ ONE ×2 (07:54)
--- NOTE | 2022-10-22 08:10 | P.OP ---
Date of Procedure: 10/22/22 Preoperative Diagnosis: Family planning Postoperative Diagnosis: Same Procedure(s) Performed: Laparoscopic bilateral tubal ligation via fulguration Anesthesia: CONCEPCIÓN Surgeon: Damaris Quinones Estimated Blood Loss (ml): 5 Pathology: none sent Condition: stable Disposition: same day Indications for Procedure: This is a 27 y.o. female, 4, para 4, who presents for laparoscopic bilateral tubal ligation via fulgaration for family planning. She recently delivered her last child and wishes permanent sterilization. Operative Findings: Uterus is anteverted, sounded to 9 cm. Small simple cyst is noted on the left ovary. Right ovary and bilateral tubes appear normal. Appendix is visualized and appears normal. Gallbladder does appear slightly dilated. Description of Procedure: The patient is taken to the operating room where she is placed in the dorsal lithotomy position. She is prepped and draped in the normal sterile fashion. Examination is performed under anesthesia. Uterus is found to be in a anteverted position. No adnexal masses were palpated. Next a bivalve speculum was placed in the patient's vagina. An Allis clamp was used to grasp the anterior lip of the cervix. The uterus was sounded to 9 cm. The kroner uterine manipulator was then inserted through the cervix and the balloon was inflated. The Allis clamp is removed, speculum was removed and gloves were changed. Attention was turned to the abdomen. A small stab incision was made with a scalpel in the infraumbilical fold. A 5 mm disposable bladeless trocar was then inserted into the peritoneal cavity under direct visualization. Once inside, pneumoperitoneum was achieved with CO2 gas. The insert was removed and the camera was placed. Intraperitoneal placement was confirmed. No bleeding was noted. Next the patient was placed in Trendelenburg position. A small stab incision was made suprapubically and a 5 mm disposable bladeless trocar was inserted into the peritoneal cavity under direct visualization. Once inside pelvic contents were inspected. The above-noted findings were made. Next a bipolar Kleppinger instrument was placed through the inferior trocar and the midportion of each tube was brought away from other structures and completely fulgurated on approximate 2-3 cm segment of each tube. Excellent hemostasis was noted. Pictures were taken. Pneumoperitoneum was released after the inferior trocar was removed under direct visualization. The upper trocar was then removed. The skin incisions were then closed with 4-0 Vicryl suture in a subcuticular interrupted fashion. Incisions were then injected with quarter percent Marcaine. Approximately 7 mL were used. Next the kroner uterine manipulator was removed. Minimal bleeding was noted. All sponge and needle counts are correct. The patient is then taken to recovery room in stable condition.
[2022-10-22 08:53] VITALS: RESP 16
[2022-10-22 09:43] VITALS: BP 114/75; PULSE 55
== END 2022-10-22 10:14 | disposition home or self-care (01) ==
LOC: OR 06:29
PROVIDERS: ATTEND Obstetrics & Gynecology
DX: Z30.2 Encounter for sterilization (principal); J45.909 Unspecified asthma, uncomplicated; K21.9 Gastro-esophageal reflux disease without esophagitis; F17.200 Nicotine dependence, unspecified, uncomplicated; Z83.49 Family history of other endocrine, nutritional and metabolic diseases; Z87.440 Personal history of urinary (tract) infections
CPT/HCPCS: 81025; 58670; J2250; J0330; J1100; J2710; J2405; J3010; J1885; J2704; J1170; J2001